=== PATIENT | male | born 1990 | race Caucasian/White ===

== ENCOUNTER 2018-01-07 15:30 | Emergency (ER) | payer OTHER ==
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
--- NOTE | 2018-01-08 12:10 | CR ---
Lumbar spine: AP, lateral and coned-down lateral views centered to the lumbosacral junction were obtained. Comparison: No prior lumbar spine imaging. Vertebral body heights and disc spaces are maintained. Pedicles as well as transverse and spinous processes are intact. Sacroiliac joints are within normal limits. No acute fracture or other bony abnormality is appreciated. Impression: 1. Nothing acute is seen on three-view lumbar spine study. Diagnostic code #1
== END 2018-01-07 16:50 | disposition home or self-care (01) ==
LOC: JD.ED 15:30
DX: S39.012A Strain of muscle, fascia and tendon of lower back, initial encounter (principal); V47.6XXA Car passenger injured in collision with fixed or stationary object in traffic accident, initial encounter
CPT/HCPCS: 72100; 72100-26; 99283; 99284